=== PATIENT | female | born 1970 | race Caucasian/White ===

== ENCOUNTER 2016-06-05 09:17 | Outpatient (RCR) | payer OTHER ==
[~2016-06-05 09:17] MED LIST: CYCL10TA9 PO; ESTR0.5T PO; OMG1KC PO
== END 2016-06-22 09:24 | disposition home or self-care (01) ==
PROVIDERS: ATTEND Podiatrist
DX: M25.371 Other instability, right ankle (principal)

== ENCOUNTER 2016-10-02 10:30 | Outpatient (RCR) | payer OTHER | END 2016-10-10 11:31 | disposition home or self-care (01) | PROVIDERS: ATTEND Podiatrist | DX: M25.571 Pain in right ankle and joints of right foot (principal); Z98.890 Other specified postprocedural states ==

== ENCOUNTER → 2016-11-08 | Outpatient (CLI) | payer OTHER ==
--- NOTE | 2016-11-08 13:54 | Diagnostic Imaging Report ---
EXAMINATION: DEXA scan. INDICATION: Osteopenia. TECHNIQUE: Bone mineral density estimated based on dual energy radiography over the lumbar spine and femoral necks, was performed. FINDINGS: The lumbar spine T-score is -1.2. This is 10.5% decreased density measurement compared to the prior exam of 02/03/2015. T score over the left femoral neck is -0.1 and on the right is -0.3. This is 1.6% decreased density measurement compared to the prior exam. IMPRESSION: Osteopenia. Dictated by: Dictated on workstation # [id number]
--- NOTE | 2016-11-08 20:24 | Diagnostic Imaging Report ---
Bilateral screening mammogram 2D views with tomosynthesis The current study was also evaluated with a Computer Aided Detection (CAD) system. Indication: Screening. No current complaints stated on the questionnaire. COMPARISON: 02/03/15. FINDINGS: The breasts are composed of scattered fibroglandular densities. There are benign-appearing calcifications seen. Allowing for technique and positional differences, no suspicious change is seen. IMPRESSION: No significant change. ACR BI-RADS Category 2: Benign findings. Result letter will be mailed to the patient. Note: At least 10% of breast cancer is not imaged by mammography. Dictated by: Dictated on workstation # [id number]
== END ==
LOC: RAD 10:34
DX: M85.80 Other specified disorders of bone density and structure, unspecified site; Z12.31 Encounter for screening mammogram for malignant neoplasm of breast
CPT/HCPCS: 77067; 77080

== ENCOUNTER → 2016-11-19 | Outpatient (CLI) | payer OTHER ==
[~2016-11-19] VITALS: Ht 160 cm; Wt 90.7 kg
[~2016-11-19] MED LIST changes: +ZOLEDRONATE 5 MG/100 ML (RECLAST) BTL IV ONE
[2016-11-19 12:43] VITALS: BP 140/87
== END ==
LOC: SDC 12:39
DX: M81.0 Age-related osteoporosis without current pathological fracture (principal)
CPT/HCPCS: 96365

== ENCOUNTER → 2018-05-19 | Outpatient (CLI) | payer OTHER ==
[~2018-05-19] MED LIST changes: -ZOLEDRONATE 5 MG/100 ML (RECLAST) BTL IV ONE
--- NOTE | 2018-05-19 13:02 | Diagnostic Imaging Report ---
INDICATION: Chronic cough, recurrent wheezing, shortness of breath.. TECHNIQUE: Two view chest 12:13 PM CORRELATION STUDY: None FINDINGS: The heart size, mediastinal configuration and pulmonary vasculature are within normal limits. The lungs are clear with no consolidating infiltrate. There is no significant pleural effusion or pneumothorax. Gastric lap and is noted. IMPRESSION: 1. No radiographic evidence for acute abnormality of the chest. Dictated by: Dictated on workstation # [id number]
== END ==
LOC: RAD 11:51
PROVIDERS: ATTEND Nurse Practitioner Family
DX: R06.02 Shortness of breath (principal); R06.2 Wheezing; R05 Cough
CPT/HCPCS: 71046

== ENCOUNTER → 2019-05-14 | Outpatient (CLI) | payer OTHER ==
[~2019-05-14] VITALS: Ht 63 cm; Wt 91.0 kg
[~2019-05-14] MED LIST changes: +CATHETER FLUSH 10 ML SYR IV PRN; +REGADENOSON 0.4 MG/5 ML SYR (LEXISCAN) IV ONE
[2019-05-14 12:48] VITALS: BP 132/97
[2019-05-14 12:51] VITALS: BP 145/104
--- NOTE | 2019-05-19 16:48 | Cardiology Stress Test Report ---
Stress Test Report Type of NM Stress Test: Test Type: LEXISCAN 0.4MG/5ML Date of Procedure/Referring: Date of Procedure: May 14, 2019 PCP Karina Ramírez Aprn Admitting Physician Lance Oliveira MD Indications: Chest pain Baseline Heart Rate: 86 Baseline Blood Pressure: Blood Pressure Systolic: 145 Blood Pressure Diastolic: 104 Baseline EKG: Baseline EKG: Sinus rhythm Summary & Conclusion: Summary: The patient was brought to the stress lab after informed consent was taken. Stress test was performed according to the Lexiscan protocol. 0.4 mg of IV Lexiscan was given. Low-grade exercise was performed. Baseline EKG showed sinus rhythm at 86 bpm and blood pressure 147/103 mmHg. Maximum heart rate of 103 bpm and blood pressure 151/95 mmHg. Patient did not have any chest pain, arrhythmias or ST segment changes during the stress test. 10.74 mCi of Myoview were given for rest imaging and 30.3 mCi of Myoview given for stress imaging. Transient ischemic dilatation score 0.94, EF 68 percent. Normal wall motion. Normal myocardial perfusion imaging during rest and stress. Conclusion: Pharmacological stress test was negative for ischemia. Normal LV function with no wall motion abnormalities. Normal myocardial perfusion imaging during rest and stress. Greyson BERRY MD May 19, 2019 16:48
== END ==
LOC: CARD 11:27
PROVIDERS: ATTEND Nurse Practitioner Family
DX: R07.89 Other chest pain (principal)
CPT/HCPCS: 78452; 93017

== ENCOUNTER 2019-12-01 05:38 | Outpatient (RCR) | payer OTHER ==
[~2019-12-01] VITALS: Ht 160 cm; Wt 93.1 kg
[~2019-12-01 05:38] MED LIST changes: -CATHETER FLUSH 10 ML SYR IV PRN; +ESTR1TAB24 PO; +FLT22013 IH; +LEVO50TA6 PO; +PROP40TA5 PO; -REGADENOSON 0.4 MG/5 ML SYR (LEXISCAN) IV ONE; +RIZA10TA23 PO
== END 2019-12-01 10:07 | disposition home or self-care (01) ==
LOC: PREOP 05:38
PROVIDERS: ATTEND Surgery
DX: Z01.818 Encounter for other preprocedural examination (principal); Z01.812 Encounter for preprocedural laboratory examination; Z12.11 Encounter for screening for malignant neoplasm of colon; R10.9 Unspecified abdominal pain; Z20.828 Contact with and (suspected) exposure to other viral communicable diseases
CPT/HCPCS: 87635

== ENCOUNTER 2019-12-03 09:48 | Day surgery (SDC) | payer OTHER ==
[2019-12-03] VITALS (12 sets, daily range): BP systolic 112–146; BP diastolic 56–87
[~2019-12-03] VITALS: Ht 160 cm; Wt 93.1 kg
[2019-12-03] MEDS ORDERED: CLINDAMYCIN 600 MG/50 ML IVPB 50 ML IV ONE (10:30)
[2019-12-03] MEDS ORDERED: SCOPOLAMINE 1.5 MG (TRANSDERM-SCOP) PATCH ONE (10:54)
[2019-12-03] MEDS ORDERED: ONDANSETRON 4 MG/2 ML (SDV) Z0FRAN ONE ×2 (10:54→11:36)
[2019-12-03] MEDS ORDERED: FAMOTIDINE 20MG/2ML IV (PEPCID) ONE (10:57)
[2019-12-03] MEDS ORDERED: FAMOTIDINE 20MG/2ML IV (PEPCID) IV ONE (11:00)
[2019-12-03] MEDS ORDERED: ONDANSETRON 4 MG/2 ML (SDV) Z0FRAN IVP PRN ×2 (11:00→15:15)
[2019-12-03] MEDS ORDERED: oxyCODONE/APAP 5/325MG (PERCOCET 5) TABLET PO PRN (11:00)
[2019-12-03] MEDS ORDERED: ACETAMINOPHEN 325 MG TABLET PO PRN (11:00)
[2019-12-03] MEDS ORDERED: SCOPOLAMINE 1.5 MG (TRANSDERM-SCOP) PATCH TOP ONE (11:00)
[2019-12-03] MEDS ORDERED: ONDANSETRON 4 MG/2 ML (SDV) Z0FRAN IV ONE (11:00)
[2019-12-03] MEDS ORDERED: morphine INJ 10 MG/ML 1ML (SYR OR VIAL) IVP PRN ×2 (11:00)
--- NOTE | 2019-12-03 11:00 | Progress Note-Pre Operative ---
Pre-Operative Progress Note H&P Reviewed The H&P was reviewed, patient examined and no changes noted. Date Seen by Provider: Dec 03, 2019 Time Seen by Provider: 10:45 Date H&P Reviewed: Dec 03, 2019 Time H&P Reviewed: :45 Pre-Operative Diagnosis: GERD, regurgitation MARGARET CARRILLO MD Dec 03, 2019 11:00
[2019-12-03] MEDS ORDERED: HYDR-3817 PO (11:01)
--- NOTE | 2019-12-03 11:02 | Discharge Inst-Surgical ---
D/C Lap Instructions-GERARDO New, Converted, or Re-Newed RX: RX on Chart Follow Up Appt in 2 weeks Activity as tolerated No driving for 24 hours No driving while on pain medications Incentive Spirometry use every 2 hours while awake Regular Diet Symptoms to Report: Fever over 101 degree F, Nausea/Vomiting Infection Signs and Symptoms to report: Increased redness, Foul odor of wound, Increased drainage Bathing instructions: May shower Operative Area Clean/Dry; Keep incision clean/dry If any problems/questions: Contact your physician or go to Emergency Room MARGARET CARRILLO MD Dec 03, 2019 11:02
[2019-12-03] MEDS: LACTATED RINGERS 1,000 ML IV PRN ×2 (11:12→15:47)
[2019-12-03 11:24] LABS: BASOPHILS % (AUTO) 1 % (0-10); EOSINOPHILS # (AUTO) 0.2 10^3/uL (0.0-0.3); EOSINOPHILS % (AUTO) 3 % (0-10); HEMATOCRIT 42 % (35-52); HEMOGLOBIN 14.7 g/dL (11.5-16.0); LYMPHOCYTES # (AUTO) 3.1 10^3/uL (1.0-4.0); LYMPHOCYTES % (AUTO) 42 % (12-44); MEAN CORPUSCULAR HEMOGLOBIN 32 pg (25-34); MEAN CORPUSCULAR HGB CONC 35 g/dL (32-36); MEAN CORPUSCULAR VOLUME 91 fL (80-99); MEAN PLATELET VOLUME 9.5 fL (9.0-12.2); MONOCYTES # (AUTO) 0.6 10^3/uL (0.0-1.0); MONOCYTES % (AUTO) 8 % (0-12); NEUTROPHILS # (AUTO) 3.4 10^3/uL (1.8-7.8); NEUTROPHILS % (AUTO) 46 % (42-75); PLATELET COUNT 333 10^3/uL (130-400); WHITE BLOOD COUNT 7.4 10^3/uL (4.3-11.0)
[2019-12-03] MEDS ORDERED: LIDOCAINE PF 2% 5 ML (XYLOCAINE) VIAL ONE (11:36)
[2019-12-03] MEDS ORDERED: ROCURONIUM 10 MG/ML 5 ML SYRINGE IV ONE (11:36)
[2019-12-03] MEDS ORDERED: proPOfol 200 MG/20 ML (DIPRIVAN) VIAL IV ONE (11:36)
[2019-12-03] MEDS ORDERED: MIDAZOLAM 2 MG/2 ML (VERSED) VIAL ONE (11:36)
[2019-12-03] MEDS ORDERED: fentaNYL INJECTION 100 MCG/2 ML AMP ONE (11:36)
[2019-12-03] MEDS ORDERED: BUP/EPI 0.5% 1:200,000 (SENSORCAINE) 30 ML VIAL ONE (11:37)
[2019-12-03] MEDS ORDERED: SEVOFLURANE (ULTANE) 15 ML INHAL SOLN ONE ×4 (11:42→15:05)
[2019-12-03] MEDS ORDERED: NEOSTIGMINE 3 MG/3 ML VIAL ONE (11:46)
[2019-12-03] MEDS ORDERED: GLYCOPYRROLATE 0.2 MG/ML (ROBINUL) 2 ML VIAL ONE (11:46)
[2019-12-03] MEDS ORDERED: HYDROmorphone 2 MG/ML VIAL (DILAUDID) IV ONE (15:15)
[2019-12-03] MEDS ORDERED: morphine INJ 10 MG/ML 1ML (SYR OR VIAL) IVP ONE (15:15)
--- NOTE | 2019-12-03 15:15 | Anesthesia-General Post-Op ---
General Patient Condition Mental Status/LOC: Same as Preop Cardiovascular: Satisfactory Nausea/Vomiting: Absent Respiratory: Satisfactory Pain: Controlled Complications: Absent Post Op Complications Complications None Follow Up Care/Instructions Patient Instructions None needed. Anesthesia/Patient Condition Patient Condition Patient is doing well, C/O some gas pain after colonoscopy, stable vital signs, no apparent adverse anesthesia problems. ALM BIANCHI DO Dec 03, 2019 15:15
--- NOTE | 2019-12-03 15:26 | Progress Note-Post Operative ---
Post-Operative Progess Note Surgeon (s)/Knife Changer (s) Surgeon MARGARET CARRILLO MD Knife Changer: thao jara APRN Pre-Operative Diagnosis GERD, regurgitation Post-Operative Diagnosis same, chronic stage 2 ext and int hemorrhoids, mild-moderate sigmoid diverticulosis. Procedure & Operative Findings Date of Procedure 12/03/19 Procedure Performed/Findings laparoscopic adjustable gastric band and subcutaneous reservoir removal. Colonoscopy. Anesthesia Type get Estimated Blood Loss Estimated blood loss (mL): minimal Specimens/Packing Specimens Removed band MARGARET CARRILLO MD Dec 03, 2019 15:26
--- NOTE | 2019-12-03 21:33 | OPERATIVE REPORT ---
DATE OF SERVICE: 12/03/2019 ATTENDING PRIMARY CARE PHYSICIAN: Lance Oliveira MD PREOPERATIVE DIAGNOSES: Symptomatic gastroesophageal reflux disease, left upper abdominal quadrant pain, dysphagia, screening colonoscopy. POSTOPERATIVE DIAGNOSES: Symptomatic gastroesophageal reflux disease, left upper abdominal quadrant pain, dysphagia, screening colonoscopy. Chronic stage II external and internal hemorrhoids, mild to moderate sigmoid diverticulosis. PROCEDURE: Diagnostic laparoscopy, removal of adjustable gastric band, colonoscopy. SURGEON: Margaret Rendon MD ATHLETE MARKETING AGENT: Nini Griffin APRN. ANESTHESIA: General endotracheal. ESTIMATED BLOOD LOSS: Minimal. FINDINGS: No band erosion. Chronic stage II external and internal hemorrhoids. Mild to moderate sigmoid diverticulosis. DISPOSITION: The patient tolerated the procedure well. INDICATIONS: The patient is a 49-year-old female who has had issues with pain in the left upper abdominal quadrant. She has had a longstanding history of morbid obesity as well as gastroesophageal reflux disease. She underwent a laparoscopic adjustable gastric band in 2007 at [facility]. She was able to lose significant amount of weight; however, over time, developed gastroesophageal reflux disease, which persisted and worsened over time. She then developed pain in the left upper abdominal quadrant. All the fluid was removed from the band. However, she will continue to have these type of symptoms. She was also seen by a uptwister tender due to recurrent bronchitis. She is also in need of a colonoscopy. She has a first-degree relative with history of colon cancer with her father being diagnosed with the disease at around age 70. DESCRIPTION OF PROCEDURE: The patient was brought to the operating room, laid supine on the table. After adequate IV pain and sedative medications and general endotracheal intubation, the abdomen was prepped and draped in standard surgical fashion. A 0.5% Marcaine with epinephrine was used to anesthetize overlying skin in the left upper abdominal quadrant and a transverse skin incision made using a 15 blade. An 0 silk suture was applied to the medial aspect of the incision for retraction and a Veress needle was inserted with a low opening pressure of 0 mmHg and the abdomen was then insufflated to 15 mmHg pressure. The Veress needle removed and a 5 mm XL trocar placed followed by a 5 mm 45-degree angle laparoscope visualizing the peritoneal cavity. A 4-quadrant abdominal exploration was performed. There were some omental adhesions towards the abdominal wall, more towards the mid abdomen and pelvis. After liver retraction, there was a band in place. Under direct visualization, we then proceeded to place a midabdominal right of midline, 10 mm port after the skin and peritoneal lining were anesthetized using 0.5% Marcaine with epinephrine and a transverse skin incision made using a 15 blade. In a similar manner, two right upper abdominal quadrant 5 mm ports were placed. An area was then anesthetized in the epigastric region and a transverse skin incision made using 11 blade. A tract was then created using a trocar to a 5 mm port and through this opening, a medium sized Jeni liver retractor was placed and the left lobe of the liver retracted anteriorly and superiorly. The patient was then placed in steep reverse Trendelenburg position. The omega angle may have been slightly increased indicating a possible inferior band slippage. The buckleto the band was then dissected out using blunt dissection as well as theSonicision. Once unclasped, the band tubing was cut with EndoShears and the band removed with minimal resistance. No band erosions were identified. Good hemostasis was observed. The band and its connected tubing was then removed through the 10 mm port site. The liver retractor was then removed and through the 10 mm port site and the 10 mm port site fascia and peritoneum were then closed under direct visualization using a Jimmy-Fatoumata device and 0 Vicryl suture. The patient was then placed flat and the band port and underlying mesh as well as sutures were removed using blunt dissection as well as electrocautery with visualization of good hemostasis. The abdomen was desufflated, the remaining ports removed. All skin incisions were closed using 4-0 Monocryl running subcuticular sutures. The wounds were then cleaned and covered with Dermabond. The patient was then placed in frog leg position. A digital rectal examination revealed chronic stage II external and internal hemorrhoids with no active inflammation or any bleeding. Normal sphincter tone was felt and there were no palpable masses. The endoscope was then intubated to anus and rectum gently insufflated. The endoscope was then advanced through the valves of Yañez of the rectum with no polyps or any neoplasms identified. The endoscope was then advanced through the sigmoid colon where mild to moderate sigmoid diverticulosis identified. There were no mucosal inflammatory changes to indicate any active diverticulitis. The endoscope was then advanced to the remainder of the descending, transverse and ascending colon to the cecum. These segments were normal. There were no polyps or any neoplasms identified throughout the colon or rectum. The endoscope was slowly withdrawn while taking a second look and suctioning of residual air with no additional findings. The patient tolerated the procedure well. We will start IV and oral pain medication as well as a clear liquid diet. Once she is tolerating clears, has good pain control with oral pain medications, ambulating well, we will discharge her home. She does not need another colonoscopy for another five years. Job ID: [id number] DocumentID: [id number] Dictated Date: 12/03/2019 15:04:27 Waste Duster Date: 12/03/2019 21:33:07 Dictated By: MARGARET RENDON MD MTDD
[2019-12-06] MEDS ORDERED: SCOPOLAMINE PATCH REMOVAL TP SCH (11:00)
== END 2019-12-03 17:30 | disposition home or self-care (01) ==
LOC: SDC 09:48
PROVIDERS: ATTEND Surgery
DX: Z12.11 Encounter for screening for malignant neoplasm of colon (principal); K21.9 Gastro-esophageal reflux disease without esophagitis; K64.1 Second degree hemorrhoids; K57.30 Diverticulosis of large intestine without perforation or abscess without bleeding; K66.0 Peritoneal adhesions (postprocedural) (postinfection); Z11.2 Encounter for screening for other bacterial diseases; Z98.84 Bariatric surgery status; Z80.0 Family history of malignant neoplasm of digestive organs; Z79.890 Hormone replacement therapy; Z79.899 Other long term (current) drug therapy; E03.9 Hypothyroidism, unspecified; Z88.5 Allergy status to narcotic agent; Z88.0 Allergy status to penicillin
CPT/HCPCS: 36415; 85025; 87081; 88300

== ENCOUNTER 2020-01-13 09:40 | Inpatient (IN) | payer OTHER ==
[~2020-01-13] VITALS: Ht 160 cm; Wt 99.6 kg
[~2020-01-13 09:40] MED LIST changes: +HYDR-3817 PO
[2020-01-13] MEDS ORDERED: LACTATED RINGERS 1,000 ML IV ONE (10:02)
[2020-01-13 10:07] LABS: ABG BASE EXCESS -1.1 MMOL/L (-2.5-2.5); ABG OXYGEN SATURATION 95 % (94-100); ABG PCO2 29 MMHG (35-45); ABG PO2 75 MMHG (79-93); ABG TCO2 22.6 MMOL/L (21.0-31.0)
[2020-01-13 10:08] LABS: ALLENS TEST YES-POS; INSPIRED O2 ROOM AIR; VENTILATOR NO
--- NOTE | 2020-01-13 10:10 | ED Respiratory ---
General Chief Complaint: Respiratory Problems Stated Complaint: COVID +, TROUBLE BREATHING Nursing Triage Note: Pt reports being diagnosed with COVID at [facility]. Pt reports symptoms began last . Pt reports early low grade fever and now increasing cough and SOB. Pt reports green sputum. Source: patient Exam Limitations: no limitations History of Present Illness Date Seen by Provider: Jan 13, 2020 Time Seen by Provider: 09:45 Initial Comments Patient presents ER by private conveyance with chief complaint shortness of breath progressively worsening over the past 6 days. She had a positive COVID test from 3 days ago. Low-grade fever sparingly productive cough of clear phlegm and nausea vomiting and diarrhea. She has pain on deep inspiration. No history of coronary disease. No significant family history. She does have some lung disease requiring Flovent daily and she's been using her albuterol the last couple days. She says she had a pneumonia about a year ago and since then has been followed by pulmonology but they have not given her a specific diagnosis yet. She is not a smoker. She has not taken anything for diarrhea and does not have anything for nausea. She usually takes ibuprofen with PPI and last dose was last night. She has a pulse oximeter which she checked throughout the night and would run anywhere from 88-93% on room air. Allergies and Home Medications Allergies Coded Allergies: meperidine (Unverified Allergy, Severe, STOPS BREATHING, 11/30/19) Penicillins (Unverified Allergy, Mild, RASH/ITCHING, 11/30/19) Home Medications Cyclobenzaprine HCl 10 Mg Tablet, 10 MG PO TID PRN for SPASMS, (Reported) Estradiol 1 Mg Tablet, 1 MG PO DAILY, (Reported) Fluticasone Propionate 1 Ea Aero, 2 EA IH BID, (Reported) Hydrocodone/Acetaminophen 1 Each Tablet, 1 EACH PO Q4H Prescribed by: MARGARET CARRILLO on 12/03/19 1101 Levothyroxine Sodium 50 Mcg Tablet, 50 MCG PO DAILY, (Reported) Propranolol HCl 40 Mg Tablet, 40 MG PO HS, (Reported) Rizatriptan Benzoate 10 Mg Tablet, 10 MG PO PRN PRN for MIGRAINES, (Reported) Patient Home Medication List Home Medication List Reviewed: Yes Review of Systems Review of Systems Constitutional: chills; No diaphoresis, No fever; malaise, weakness EENTM: No hearing loss, No ear pain, No nose congestion Respiratory: cough, phlegm, short of breath; No wheezing Cardiovascular: see HPI, chest pain; No edema, No Hx of Intervention, No palpitations Gastrointestinal: No abdominal pain, No constipation; diarrhea, nausea, vomiting Genitourinary: No discharge, No dysuria Musculoskeletal: No back pain, No joint pain All Other Systems Reviewed Negative Unless Noted: Yes Past Gdblzwy-Njchzu-Gflaag Hx Patient Social History Alcohol Use: Denies Use Recreational Drug Use: No 2nd Hand Smoke Exposure: No Recent Foreign Travel: No Contact w/Someone Who Travel: No Recent Infectious Disease Expo: No Recent Hopitalizations: No Seasonal Allergies Seasonal Allergies: No Past Medical History Surgeries: Yes (CS X2, LAP BAND, RIGHT FOOT, BLADDER X3) Appendectomy, Section, Gallbladder, Hysterectomy, Oophorectomy Respiratory: No Cardiac: Yes High Cholesterol Neurological: Yes Headaches /Migraines Sexually Transmitted Disease: No HIV/AIDS: No Genitourinary: Yes (INTERSTITIAL CYSTITIS) UTI-Chronic Gastrointestinal: Yes Gastroesophageal Reflux Musculoskeletal: Yes Arthritis, Fibromyalgia Endocrine: Yes Hypothyroidsim HEENT: No (GLASSES) Loss of Vision: Denies Hearing Impairment: Denies Cancer: No Psychosocial: No Integumentary: No Blood Disorders: No Adverse Reaction/Blood Tranf: No (N/A) Physical Exam Vital Signs - First Documented 01/13/20 09:45 Temp 37.0 Pulse 93 Resp 20 B/P (MAP) 111/83 (92) Pulse Ox 97 Capillary Refill : Less Than 3 Seconds Height: 5'3.00" Weight: 200lbs. 0.0oz. 90.161000jy; 35.00 BMI Method: General Appearance: WD/WN, moderate distress Eyes: Bilateral Eye Normal Inspection, Bilateral Eye PERRL, Bilateral Eye EOMI HEENT: PERRL/EOMI, normal ENT inspection, TMs normal; No pharynx normal (oropharynx dry) Neck: full range of motion, normal inspection Respiratory: lungs clear, no accessory muscle use, respiratory distress (mild with oxygen sats 95% on room air at rest.), decreased breath sounds Cardiovascular: normal peripheral pulses, regular rate, rhythm Gastrointestinal: normal bowel sounds, non tender, soft Extremities: non-tender, normal inspection Neurologic/Psychiatric: alert, normal mood/affect, oriented x 3 Skin: normal color, warm/dry Focused Exam Sepsis Stage: Sepsis Lactate Level 01/13/20 10:00: Lactic Acid Level 2.44*H Time of Focused Exam: 10:57 Respiratory: Lungs Clear, Normal Breath Sounds, Respiratory Distress Cardiovascular: Regular Rate, Rhythm, No Edema Capillary Refill: Less Than 3 Seconds Peripheral Pulses: 2+ Radial Pulses (R), 2+ Radial Pulses (L) Skin: normal color, warm/dry Lactic Acid Level Laboratory Tests Test 01/13/20 10:00 Lactic Acid Level 2.44 MMOL/L (0.50-2.00) *H Within 3hrs of presentation: Admin fluids, Admin ABX, Blood cultures prior to ABX's, Focus exam, Lactate level Progress/Results/Core Measures Suspected Sepsis Recent Fever Within 48 Hours: No Infection Criteria Present: None New/Unexplained Altered Menta: No Sepsis Screen: No Definite Risk SIRS Temperature: Pulse: 93 Respiratory Rate: 20 Laboratory Tests 01/13/20 10:00: White Blood Count 4.1L Blood Pressure 111 /83 Mean: 92 01/13/20 10:00: Lactic Acid Level 2.44*H Laboratory Tests 01/13/20 10:00: Creatinine 0.74, Platelet Count 195, Total Bilirubin 0.4 Results/Orders Lab Results Laboratory Tests Test 01/13/20 09:57 01/13/20 10:00 01/13/20 10:14 Range/Units Blood Gas Puncture Site R RAD Blood Gas Patient Temperature 37.0 Arterial Blood pH 7.50 H 7.37-7.43 Arterial Blood Partial Pressure CO2 29 L 35-45 MMHG Arterial Blood Partial Pressure O2 75 L 79-93 MMHG Arterial Blood HCO3 22 L 23-27 MMOL/L Arterial Blood Total CO2 22.6 21.0-31.0 MMOL/L Arterial Blood Oxygen Saturation 95 94-100 % Arterial Blood Base Excess -1.1 -2.5-2.5 MMOL/L Michelet Test YES-POS Blood Gas Ventilator Setting NO Blood Gas Inspired Oxygen ROOM AIR White Blood Count 4.1 L 4.3-11.0 10^3/uL Red Blood Count 4.13 3.80-5.11 10^6/uL Hemoglobin 13.3 11.5-16.0 g/dL Hematocrit 38 35-52 % Mean Corpuscular Volume 92 80-99 fL Mean Corpuscular Hemoglobin 32 25-34 pg Mean Corpuscular Hemoglobin Concent 35 32-36 g/dL Red Cell Distribution Width 12.8 10.0-14.5 % Platelet Count 195 130-400 10^3/uL Mean Platelet Volume 9.7 9.0-12.2 fL Immature Granulocyte % (Auto) 1 % Neutrophils (%) (Auto) 55 42-75 % Lymphocytes (%) (Auto) 35 12-44 % Monocytes (%) (Auto) 9 0-12 % Eosinophils (%) (Auto) 1 0-10 % Basophils (%) (Auto) 0 0-10 % Neutrophils # (Auto) 2.2 1.8-7.8 10^3/uL Lymphocytes # (Auto) 1.4 1.0-4.0 10^3/uL Monocytes # (Auto) 0.4 0.0-1.0 10^3/uL Eosinophils # (Auto) 0.0 0.0-0.3 10^3/uL Basophils # (Auto) 0.0 0.0-0.1 10^3/uL Immature Granulocyte # (Auto) 0.0 0.0-0.1 10^3/uL D-Dimer < 0.27 0.00-0.49 UG/ML Sodium Level 138 135-145 MMOL/L Potassium Level 3.5 L 3.6-5.0 MMOL/L Chloride Level 104 98-107 MMOL/L Carbon Dioxide Level 21 21-32 MMOL/L Anion Gap 13 5-14 MMOL/L Blood Urea Nitrogen 8 7-18 MG/DL Creatinine 0.74 0.60-1.30 MG/DL Estimat Glomerular Filtration Rate > 60 BUN/Creatinine Ratio 11 Glucose Level 90 70-105 MG/DL Lactic Acid Level 2.44 *H 0.50-2.00 MMOL/L Calcium Level 7.8 L 8.5-10.1 MG/DL Corrected Calcium 8.3 L 8.5-10.1 MG/DL Total Bilirubin 0.4 0.1-1.0 MG/DL Aspartate Amino Transf (AST/SGOT) 33 5-34 U/L Alanine Aminotransferase (ALT/SGPT) 41 0-55 U/L Alkaline Phosphatase 59 40-136 U/L C-Reactive Protein High Sensitivity 2.26 H 0.00-0.50 MG/DL Total Protein 6.4 6.4-8.2 GM/DL Albumin 3.4 3.2-4.5 GM/DL Procalcitonin 0.02 <0.10 NG/ML Urine Color YELLOW Urine Clarity CLEAR Urine pH 6.0 5-9 Urine Specific Bayard 1.020 1.016-1.022 Urine Protein NEGATIVE NEGATIVE Urine Glucose (UA) NEGATIVE NEGATIVE Urine Ketones NEGATIVE NEGATIVE Urine Nitrite NEGATIVE NEGATIVE Urine Bilirubin NEGATIVE NEGATIVE Urine Urobilinogen 0.2 < = 1.0 MG/DL Urine Leukocyte Esterase NEGATIVE NEGATIVE Urine RBC (Auto) NEGATIVE NEGATIVE Urine RBC NONE /HPF Urine WBC 10-25 H /HPF Urine Squamous Epithelial Cells 10-25 H /HPF Urine Crystals NONE /LPF Urine Bacteria MODERATE H /HPF Urine Casts NONE /LPF Urine Mucus NEGATIVE /LPF Urine Culture Indicated YES My Orders Orders - YVONNE BARRETO Arterial Blood Gas (01/13/20 09:58) Ed Iv/Invasive Line Start (01/13/20 10:02) Lactated Ringers (Lr 1000 Ml Iv Solution (01/13/20 10:02) Ondansetron Injection (Zofran Injectio (01/13/20 10:15) Ketorolac Injection (Toradol Injection) (01/13/20 10:15) Procalcitonin (Pct) (01/13/20 10:02) Hs C Reactive Protein (01/13/20 10:02) Fibrin Degradation Products (01/13/20 10:02) Cbc With Automated Diff (01/13/20 10:02) Comprehensive Metabolic Panel (01/13/20 10:02) Ua Culture If Indicated (01/13/20 10:02) Chest 1 View, Ap/Pa Only (01/13/20 10:02) Covid-19 External Lab Results (01/13/20 10:15) Lactic Acid Analyzer (01/13/20 10:57) Ceftriaxone For Iv Use (Rocephin For I (01/13/20 11:00) Azithromycin Injection (Zithromax Inject (01/13/20 11:00) Dexamethasone Injection (Decadron Inje (01/13/20 11:00) Urine Culture (01/13/20 10:14) Lactated Ringers (Lr 1000 Ml Iv Solution (01/13/20 11:12) Medications Given in ED Current Medications Medications Dose Ordered Sig/Ravinder Route Start Time Stop Time Status Last Admin Dose Admin Azithromycin 500 mg/Sodium Chloride 250 ml @ 250 mls/hr ONCE ONCE IV 01/13/20 11:00 01/13/20 11:59 DC 01/13/20 11:44 250 MLS/HR Ceftriaxone Sodium 1000 mg/ Sterile Water 10 ml @ 200 mls/hr ONCE ONCE IV 01/13/20 11:00 01/13/20 11:02 DC 01/13/20 11:44 200 MLS/HR Dexamethasone Sodium Phosphate 6 mg ONCE ONCE IV 01/13/20 11:00 01/13/20 11:01 DC 01/13/20 11:35 6 MG Ketorolac Tromethamine 30 mg ONCE ONCE IVP 01/13/20 10:15 01/13/20 10:16 DC 01/13/20 10:27 30 MG Lactated Ringer's 1,000 ml @ 0 mls/hr Q0M ONCE IV 01/13/20 10:02 01/13/20 10:06 DC 01/13/20 10:24 1,000 MLS/HR Ondansetron HCl 8 mg ONCE ONCE IVP 01/13/20 10:15 01/13/20 10:16 DC 01/13/20 10:23 8 MG Vital Signs/I&O 01/13/20 09:45 Temp 37.0 Pulse 93 Resp 20 B/P (MAP) 111/83 (92) Pulse Ox 97 Capillary Refill : Less Than 3 Seconds Blood Pressure Mean: 92 Progress Note #1: Time: 10:09 Progress Note Borderline whether or not she is truly having hypoxia so we'll get an ABG. We'll get some labs and urinalysis. We'll give her some Zofran for her nausea and Toradol for her discomfort and headache. Suspect her chest pain is pleuritic in nature and related to her COVID infection. We'll get a chest x-ray and some labs will help us rule out bacterial infection. While she is tachycardic and probably has a mild white count this is most likely due to COVID-19 so we will be cautious with her IV fluid repletion and start with just 1 L. We will not give antibiotics until we see evidence of bacterial infection. Progress Note #2: Time: 10:54 Progress Note Patient desatted 88% on walking to the bathroom per nursing. Her ABG does demonstrate baseline resting hypoxia and she is blowing off her CO2 trying to oxygenate. A couple liters of oxygen would probably help. Her to get her some Decadron and recommends stay in the hospital on oxygen. Because of the chest x- ray finding and a low white count we'll go ahead and cover her with Rocephin and azithromycin. Diagnostic Imaging Diagonstic Imaging: Xray Plain Films/CT/US/NM/MRI: chest Comments NAME: KARAN GALVEZ [facility] REC#: [id number] PT STATUS: REG ER : 1970 PHYSICIAN: YVONNE BARRETO MD ADMIT DATE: 01/13/20/ER Draft Date of Exam:01/13/20 CHEST 1 VIEW, AP/PA ONLY HISTORY: COVID positive, increasing cough and shortness of air. TECHNIQUE: Frontal view of the chest. COMPARISON: 05/19/2018. FINDINGS: Lung volumes are normal. There are airspace opacities in the left midlung and peripheral left lung base. No pleural effusion or pneumothorax is seen. The cardiac silhouette is normal in size. IMPRESSION: 1. Airspace opacities in the left lung consistent with pneumonia. Dictated on workstation # [id number] Dict: 01/13/20 1030 Trans: 01/13/20 1032 [facility] [place] [id number] Interpreted by: LISE CHANDLER MD Electronically signed by: Reviewed: Reviewed by Me Departure Communication (Admissions) Time/Spoke to Admitting Phy: 12:05 Discussed the case with Dr. Winter and he agrees to admit the floor on oxygen, Decadron and antibiotics. Impression Primary Impression: COVID-19 Additional Impressions: Pneumonia Qualified Codes: J18.9 - Pneumonia, unspecified organism Acute respiratory failure with hypoxia Sepsis Qualified Codes: A41.9 - Sepsis, unspecified organism; R65.20 - Severe sepsis without septic shock; J96.01 - Acute respiratory failure with hypoxia Disposition: ADMITTED INPATIENT Condition: Stable Admissions Decision to Admit Reason: Admit from ER (General) Decision to Admit/Date: Jan 13, 2020 Time/Decision to Admit Time: 10:57 Departure-Patient Inst. Referrals: JOAO BUCHANAN MD (PCP/Family) Primary Care Physician YVONNE BARRETO Jan 13, 2020 10:10
[2020-01-13] MEDS ORDERED: ONDANSETRON 4 MG/2 ML (SDV) Z0FRAN IVP ONE (10:15)
[2020-01-13] MEDS ORDERED: KETOROLAC 30 MG/ML VIAL IVP ONE (10:15)
[2020-01-13 10:16] LABS: BASOPHILS % (AUTO) 0 % (0-10); EOSINOPHILS % (AUTO) 1 % (0-10); HEMATOCRIT 38 % (35-52); HEMOGLOBIN 13.3 g/dL (11.5-16.0); LYMPHOCYTES # (AUTO) 1.4 10^3/uL (1.0-4.0); LYMPHOCYTES % (AUTO) 35 % (12-44); MEAN CORPUSCULAR HEMOGLOBIN 32 pg (25-34); MEAN CORPUSCULAR HGB CONC 35 g/dL (32-36); MEAN CORPUSCULAR VOLUME 92 fL (80-99); MEAN PLATELET VOLUME 9.7 fL (9.0-12.2); MONOCYTES # (AUTO) 0.4 10^3/uL (0.0-1.0); MONOCYTES % (AUTO) 9 % (0-12); NEUTROPHILS # (AUTO) 2.2 10^3/uL (1.8-7.8); NEUTROPHILS % (AUTO) 55 % (42-75); PLATELET COUNT 195 10^3/uL (130-400); WHITE BLOOD COUNT 4.1 10^3/uL (4.3-11.0)
[2020-01-13 10:32] LABS: ALBUMIN 3.4 GM/DL (3.2-4.5); CHLORIDE 104 MMOL/L (98-107); POTASSIUM 3.5 MMOL/L (3.6-5.0); SODIUM 138 MMOL/L (135-145)
[2020-01-13 10:33] LABS: CALCIUM 7.8 MG/DL (8.5-10.1)
--- NOTE | 2020-01-13 10:33 | Diagnostic Imaging Report ---
HISTORY: COVID positive, increasing cough and shortness of air. TECHNIQUE: Frontal view of the chest. COMPARISON: 05/19/2018. FINDINGS: Lung volumes are normal. There are airspace opacities in the left midlung and peripheral left lung base. No pleural effusion or pneumothorax is seen. The cardiac silhouette is normal in size. IMPRESSION: 1. Airspace opacities in the left lung consistent with pneumonia. Dictated by: Dictated on workstation # [id number]
[2020-01-13 10:34] LABS: GLUCOSE 90 MG/DL (70-105); TOTAL PROTEIN 6.4 GM/DL (6.4-8.2)
[2020-01-13 10:35] LABS: CARBON DIOXIDE 21 MMOL/L (21-32)
--- NOTE | 2020-01-13 10:35 | NUR ---
Called pt's regarding plan of care for pt.
[2020-01-13 10:36] LABS: BILIRUBIN,TOTAL 0.4 MG/DL (0.1-1.0)
[2020-01-13 10:38] LABS: ALKALINE PHOSPHATASE 59 U/L (40-136); CREATININE SERUM 0.74 MG/DL (0.60-1.30); GFR ESTIMATED > 60
[2020-01-13 10:39] LABS: BUN/CREATININE RATIO 11
[2020-01-13 10:40] LABS: BILIRUBIN,URINE NEGATIVE (NEGATIVE); CLARITY,URINE CLEAR; COLOR,URINE YELLOW; GLUCOSE, URINE (UA) NEGATIVE (NEGATIVE); KETONES,URINE NEGATIVE (NEGATIVE); LEUKOCYTE ESTERASE ,URINE NEGATIVE (NEGATIVE); NITRITE,URINE NEGATIVE (NEGATIVE); PROTEIN,URINE NEGATIVE (NEGATIVE)
[2020-01-13 10:41] LABS: ALANINE AMINOTRANSFERASE 41 U/L (0-55)
--- NOTE | 2020-01-13 10:41 | NUR ---
Pt up to restroom; O2 dropped to 89%. Pt's O2 returned to mid 90s after being back in bed for a moment. Addendum: 01/13/20 at 1058 by [id number] Odalys notified of pt's O2 status.
[2020-01-13 10:58] LABS: BACTERIA,URINE MODERATE /HPF
[2020-01-13] MEDS ORDERED: AZITHROMYCIN INJECTION 500 MG in NS (IVPB) 250 ML IV ONE (11:00)
[2020-01-13] MEDS ORDERED: cefTRIAXone FOR IV USE 1,000 MG in WATER (STERILE) FOR INJECTION 10 ML IV ONE (11:00)
[2020-01-13] MEDS ORDERED: LACTATED RINGERS 1,000 ML IV STA (11:12)
--- NOTE | 2020-01-13 12:52 | NUR ---
Called and spoke to regarding admission.
[2020-01-13] MEDS ORDERED: ACETAMINOPHEN 500 MG TAB (TYLENOL) PO ONE (13:15)
[2020-01-13] MEDS ORDERED: ONDANSETRON 4 MG/2 ML (SDV) Z0FRAN IV PRN (13:15)
[2020-01-13] MEDS ORDERED: ACETAMINOPHEN 325 MG TABLET PO PRN (13:15)
[2020-01-13] MEDS ORDERED: IBUPROFEN 800 MG (MOTRIN) TAB PO PRN (13:15)
[2020-01-13] MEDS ORDERED: LOPERAMIDE 2 MG (IMODIUM) TABLET PO PRN (13:15)
--- NOTE | 2020-01-13 13:20 | NUR ---
Karan Galvez admitted to room 432-1, with an admitting diagnosis of hypoxia, on 01/13/20 from [place] via , accompanied by .KARAN GALVEZ introduced to surroundings, call light, bed controls, phone, TV, temperature control, lights, meal times, smoking policy, visitor policy, side rail policy, bathrooms and showers. Patient Rights given to patient in the handbook.KARAN GALVEZ verbalizes understanding that [facility] is not responsible for the loss or damage to any personal effects or valuables that are kept in the patients posession during their hospitalization. KARAN GALVEZ verbalizes understanding of Interdisciplinary Patient Education. Patient and/or family were informed about the Rapid Response Team and its purpose.
[2020-01-13] MEDS ORDERED: CATHETER FLUSH 10 ML SYR IV PRN (13:30)
[2020-01-13 13:35] VITALS: BP 120/77
[2020-01-13] MEDS ORDERED: RIZA10TA94 PO (14:20)
[2020-01-13] MEDS ORDERED: PROP20TA5 PO (14:20)
[2020-01-13] MEDS ORDERED: PHEN-827 PO (14:20)
[2020-01-13] MEDS ORDERED: LORA-726 PO (14:20)
[2020-01-13] MEDS ORDERED: L.AC1CAP6 PO (14:21)
[2020-01-13] MEDS ORDERED: ASCO-262 PO (14:21)
--- NOTE | 2020-01-13 14:21 | NUR ---
SPOKE WITH THE PT (I CALLED THE PT ROOM) AND WENT THRU THE EXT MED HISTORY TO COMPLETE THE MED REC PT WAS ABLE TO NAME ALL HER MEDICATIONS. ACCORDING TO THE PT SHE TAKES FLEXERIL 10MG - 2 TO 4 TABS HS PT SAYS SHE TAKES DUEXIS (IBUPROFEN 800MG + FAMOTIDINE) BUT I CANT FIND WHAT PHARMACY HAS FILLED THEM OTC MEDS: PROBIOTIC VITAMIN C
[2020-01-13] MEDS: LACTATED RINGERS 1,000 ML IV SCH (15:07)
[2020-01-13] MEDS ORDERED: FLU QUADRIvalent (3YOA+) 60 mcg/0.5 ml 2020-21 (AFLURIA) IM ONE (15:15)
[2020-01-13 16:09] VITALS: BP 120/77
[2020-01-13] MEDS ORDERED: RT-ALBUTEROL INHALER HFA (VENTOLIN HFA) 18 GM IH PRN (16:15)
[2020-01-13 16:39] VITALS: BP 139/71
[2020-01-13] MEDS ORDERED: ENOXAPARIN 40 MG/0.4 ML (LOVENOX) SYR SQ SCH (19:00)
[2020-01-13 20:32] VITALS: BP 137/69
--- NOTE | 2020-01-13 20:51 | History & Physical-Hospitalist ---
History of Present Illness HPI/Chief Complaint Briana Daly is a 49 year old female with PMH hypothyroidism, migraines, fibromyalgia, who presented with shortness of breath. She tested positive for COVID-19 a few days ago. She reports fevers. She reports cough. She has been nauseous. She has been weak. She has lost her sense of taste and smell. She reports anorexia. She reports chest tightness. She denies abdominal pain. She reports diarrhea. She has not been talking any medicines for COVID. She has not had any sick contacts that she is aware of. Source: patient Exam Limitations: no limitations Date Seen 01/13/20 Time Seen by a Provider: 15:30 Attending Physician Jorge Luz MD PCP Lance Oliveira MD Referring Physician Date of Admission Jan 13, 2020 at 12:05 Home Medications & Allergies Home Medications Reviewed patient Home Medication Reconciliation performed by pharmacy medication reconciliations phlebotomy services technician and/or nursing. Patients Allergies have been reviewed. Allergies Allergies Coded Allergies meperidine (Unverified Allergy, Severe, STOPS BREATHING, 11/30/19) Penicillins (Unverified Allergy, Mild, RASH/ITCHING, 11/30/19) Past Xkeugyc-Uqnhil-Kjgwqg Hx Past Med/Social Hx: Reviewed Nursing Past Med/Soc Hx Patient Social History Alcohol Use: Denies Use Recreational Drug Use: No 2nd Hand Smoke Exposure: No Recent Foreign Travel: No Contact w/other who traveled: No Recent Hopitalizations: No Recent Infectious Disease Expo: No Seasonal Allergies Seasonal Allergies: No Past Medical History Surgeries: Appendectomy, Section, Gallbladder, Hysterectomy, Oophorectomy Cardiac: High Cholesterol Neurological: Headaches /Migraines Sexually Transmitted Disease: No HIV/AIDS: No Genitourinary: UTI-Chronic Gastrointestinal: Gastroesophageal Reflux Musculoskeletal: Arthritis, Fibromyalgia Endocrine: Hypothyroidsim Loss of Vision: Denies Hearing Impairment: Denies History of Blood Disorders: No Adverse Reaction to Blood Deleon: No (N/A) Review of Systems Constitutional: fever, malaise, weakness EENTM: no symptoms reported Respiratory: cough, short of breath Cardiovascular: chest pain Gastrointestinal: diarrhea, nausea Genitourinary: no symptoms reported Musculoskeletal: muscle pain Skin: no symptoms reported Psychiatric/Neurological: No Symptoms Reported Physical Exam Physical Exam Vital Signs Vital Signs - First Documented 11/25/20 11/25/20 09:45 13:05 Temp 37.0 Pulse 93 Resp 20 B/P (MAP) 111/83 (92) Pulse Ox 97 O2 Delivery Nasal Cannula O2 Flow Rate 2.00 Capillary Refill : Less Than 3 Seconds Height, Weight, BMI Height: 5'3.00" Weight: 200lbs. 0.0oz. 90.026757dm; 38.90 BMI Method: General Appearance: No Apparent Distress, Obese HEENT: PERRL/EOMI, Pharynx Normal Neck: Normal Inspection, Supple Respiratory: Lungs Clear, Normal Breath Sounds, No Respiratory Distress Cardiovascular: Regular Rate, Rhythm, No Edema, No Murmur Gastrointestinal: Normal Bowel Sounds, Non Tender, Soft Extremity: Normal Inspection, Non Tender, No Pedal Edema Neurologic/Psychiatric: Alert, Oriented x3, No Motor/Sensory Deficits, Normal Mood/Affect Skin: Normal Color, Warm/Dry Results Results/Procedures Labs Laboratory Tests 01/13/20 10:00 Patient resulted labs reviewed. Imaging: Reviewed Imaging Report Assessment/Plan Admission Diagnosis Acute respiratory failure due to COVID-19 Admission Status: Inpatient Order (span 2 midnights) Reason for Inpatient Admission: Respiratory failure requring supplemental oxygen Assessment and Plan Acute respiratory failure due to COVID-19 Possible bacterial pneumonia Tested COVID+ at outside facility CXR showed diffuse opacities Procalcitonin normal Ddimer normal Started on Decadron Convalescent plasma ordered Started on Rocephin and Azithromycin Supplemental oxygen as needed Fibromyalgia Migraines Hypothyroidism Continue home meds Obesity Clinically significant, no acute management needs DVT Prophylaxis: Lovenox Diagnosis/Problems Diagnosis/Problems (1) Acute respiratory failure due to COVID-19 Status: Acute (2) PNA (pneumonia) Status: Acute (3) Fibromyalgia Status: Chronic (4) Migraines Status: Chronic (5) Obesity Status: Chronic (6) Hypothyroidism Status: Chronic Clinical Quality Measures DVT/VTE Risk/Contraindication: Risk Factor Score Per Nursin RFS Level Per Nursing on Admit: 4+=Very High JORGE LUZ MD Jan 13, 2020 20:51
[2020-01-13] MEDS ORDERED: FLUTICASONE PROPIONATE IH SCH (21:00)
[2020-01-13] MEDS: ESTRADIOL 1 MG TAB (ESTRACE) PO SCH (21:46)
[2020-01-13] MEDS: PROPRANOLOL 20 MG (INDERAL) TABLET PO SCH (21:46)
[2020-01-13] MEDS: ENOXAPARIN 40 MG/0.4 ML (LOVENOX) SYR SQ SCH (21:47)
[2020-01-13] MEDS: CYCLOBENZAPRINE 10 MG (FLEXERIL) TAB PO PRN (21:50)
[2020-01-13] MEDS: FLUTICASONE 220 MCG INHALER (FLOVENT) 12 GM INH SCH (22:00)
[2020-01-13] MEDS: RT-ALBUTEROL INHALER HFA (VENTOLIN HFA) 18 GM IH SCH (22:01)
[2020-01-14] VITALS (7 sets, daily range): BP systolic 102–126; BP diastolic 64–77
[2020-01-14] MEDS ORDERED: NS IV 500 ML 500 ML ONE (01:40)
[2020-01-14] MEDS: LACTATED RINGERS 1,000 ML IV SCH ×3 (02:05→09:30)
[2020-01-14] MEDS ORDERED: NS IV 500 ML 500 ML IV ONE (02:15)
[2020-01-14] MEDS: RT-ALBUTEROL INHALER HFA (VENTOLIN HFA) 18 GM IH SCH ×4 (02:25→19:19)
[2020-01-14 05:44] LABS: BASOPHILS % (AUTO) 0 % (0-10); EOSINOPHILS % (AUTO) 0 % (0-10); HEMATOCRIT 33 % (35-52); HEMOGLOBIN 11.6 g/dL (11.5-16.0); LYMPHOCYTES # (AUTO) 1.2 10^3/uL (1.0-4.0); LYMPHOCYTES % (AUTO) 39 % (12-44); MEAN CORPUSCULAR HEMOGLOBIN 32 pg (25-34); MEAN CORPUSCULAR HGB CONC 35 g/dL (32-36); MEAN CORPUSCULAR VOLUME 92 fL (80-99); MEAN PLATELET VOLUME 10.1 fL (9.0-12.2); MONOCYTES # (AUTO) 0.3 10^3/uL (0.0-1.0); MONOCYTES % (AUTO) 11 % (0-12); NEUTROPHILS # (AUTO) 1.5 10^3/uL (1.8-7.8); NEUTROPHILS % (AUTO) 50 % (42-75); PLATELET COUNT 164 10^3/uL (130-400); WHITE BLOOD COUNT 3.1 10^3/uL (4.3-11.0)
[2020-01-14 06:25] LABS: ALBUMIN 3.3 GM/DL (3.2-4.5); CHLORIDE 104 MMOL/L (98-107); POTASSIUM 3.3 MMOL/L (3.6-5.0); SODIUM 139 MMOL/L (135-145)
[2020-01-14 06:26] LABS: CALCIUM 7.6 MG/DL (8.5-10.1)
[2020-01-14 06:27] LABS: GLUCOSE 120 MG/DL (70-105)
[2020-01-14 06:29] LABS: BILIRUBIN,TOTAL 0.4 MG/DL (0.1-1.0); CARBON DIOXIDE 22 MMOL/L (21-32)
[2020-01-14 06:31] LABS: ALKALINE PHOSPHATASE 52 U/L (40-136); CREATININE SERUM 0.69 MG/DL (0.60-1.30); GFR ESTIMATED > 60
[2020-01-14 06:32] LABS: BUN/CREATININE RATIO 10
[2020-01-14 06:34] LABS: ALANINE AMINOTRANSFERASE 32 U/L (0-55)
[2020-01-14] MEDS: LEVOTHYROXINE 50 MCG (LEVOTHROID) TAB PO SCH (07:03)
[2020-01-14] MEDS: FLUTICASONE 220 MCG INHALER (FLOVENT) 12 GM INH SCH (08:20)
[2020-01-14] MEDS ORDERED: KCL 20 MEQ TAB (K-DUR) PO NR (09:00)
[2020-01-14] MEDS ORDERED: cefTRIAXone 1,000 MG/SWFI 10 ML IV PUSH IV SCH ×2 (09:00)
[2020-01-14] MEDS: PANTOPRAZOLE 40 MG (PROTONIX) TAB PO SCH (09:29)
[2020-01-14] MEDS: CEFDINIR 300 MG (OMNICEF) CAP PO SCH ×2 (09:53→20:25)
[2020-01-14] MEDS ORDERED: guaiFENesin (MUCINEX) 600 MG TAB PO NR (13:30)
--- NOTE | 2020-01-14 13:30 | Progress Note - Hospitalist ---
Subjective HPI/CC On Admission Date Seen by Provider: Jan 14, 2020 Time Seen by Provider: 11:10 Briana Daly is a 49 year old female with PMH hypothyroidism, migraines, fibromyalgia, who presented with shortness of breath. She tested positive for COVID-19 a few days ago. She reports fevers. She reports cough. She has been nauseous. She has been weak. She has lost her sense of taste and smell. She reports anorexia. She reports chest tightness. She denies abdominal pain. She reports diarrhea. She has not been talking any medicines for COVID. She has not had any sick contacts that she is aware of. Subjective/Events-last exam She reports feeling better today. She is asking about going home tomorrow. She is not feeling short of breath. She has been up and moving around and did not get short of breath with activity. She still has a cough. She denies any fevers. She has no other complaints or concerns. Focused Exam Lactate Level 01/13/20 10:00: Lactic Acid Level 2.44*H 01/13/20 12:20: Lactic Acid Level 1.14 01/13/20 13:31: Lactic Acid Level 1.08 Time of Focused Exam: 10:57 Objective Exam Vital Signs Vital Signs Date Time Temp Pulse Resp B/P (MAP) Pulse Ox O2 Delivery O2 Flow Rate FiO2 01/14/20 12:00 36.7 70 20 120/65 (83) 94 Nasal Cannula 2.00 Capillary Refill : Less Than 3 Seconds General Appearance: No Apparent Distress, Obese Respiratory: Lungs Clear, Normal Breath Sounds, No Respiratory Distress Cardiovascular: Regular Rate, Rhythm, No Edema, No Murmur Gastrointestinal: Normal Bowel Sounds, Non Tender, Soft Extremity: Normal Inspection, Non Tender, No Pedal Edema Neurologic/Psychiatric: Alert, Oriented x3, No Motor/Sensory Deficits, Other (flat affect) Skin: Normal Color, Warm/Dry Results/Procedures Lab Laboratory Tests 01/14/20 05:15 Patient resulted labs reviewed. Imaging: Reviewed Imaging Report Assessment/Plan Assessment and Plan Assess & Plan/Chief Complaint Acute respiratory failure due to COVID-19 Possible bacterial pneumonia continue Decadron s/p 1 unit convalescent plasma Procalcitonin remains normal Transitioned to Omnicef Supplemental oxygen as needed Fibromyalgia Migraines Hypothyroidism Continue home meds Obesity Clinically significant, no acute management needs DVT Prophylaxis: Lovenox Diagnosis/Problems Diagnosis/Problems (1) Acute respiratory failure due to COVID-19 Status: Acute (2) PNA (pneumonia) Status: Acute (3) Fibromyalgia Status: Chronic (4) Migraines Status: Chronic (5) Obesity Status: Chronic (6) Hypothyroidism Status: Chronic Clinical Quality Measures DVT/VTE Risk/Contraindication: Risk Factor Score Per Nursin RFS Level Per Nursing on Admit: 4+=Very High JORGE LUZ MD Jan 14, 2020 13:30
[2020-01-14] MEDS ORDERED: guaiFENesin (MUCINEX) 600 MG TAB PO ONE (13:44)
[2020-01-14] MEDS ORDERED: LACTATED RINGERS 1,000 ML IV ONE (18:16)
[2020-01-14] MEDS: CYCLOBENZAPRINE 10 MG (FLEXERIL) TAB PO PRN (20:25)
[2020-01-14] MEDS: PROPRANOLOL 20 MG (INDERAL) TABLET PO SCH (20:25)
[2020-01-14] MEDS: ENOXAPARIN 40 MG/0.4 ML (LOVENOX) SYR SQ SCH (20:25)
[2020-01-14] MEDS: guaiFENesin (MUCINEX) 600 MG TAB PO SCH (20:25)
[2020-01-14] MEDS: ESTRADIOL 1 MG TAB (ESTRACE) PO SCH (20:25)
[2020-01-14] MEDS ORDERED: AZITHROMYCIN 500 MG/NS 250 ML IVPB IV SCH ×2 (23:00)
[2020-01-15 00:06] VITALS: BP 101/62
[2020-01-15] MEDS: RT-ALBUTEROL INHALER HFA (VENTOLIN HFA) 18 GM IH SCH ×2 (02:15→07:24)
[2020-01-15 05:54] LABS: BASOPHILS % (AUTO) 0 % (0-10); EOSINOPHILS % (AUTO) 0 % (0-10); HEMATOCRIT 35 % (35-52); HEMOGLOBIN 11.6 g/dL (11.5-16.0); LYMPHOCYTES # (AUTO) 2.3 10^3/uL (1.0-4.0); LYMPHOCYTES % (AUTO) 33 % (12-44); MEAN CORPUSCULAR HEMOGLOBIN 31 pg (25-34); MEAN CORPUSCULAR HGB CONC 33 g/dL (32-36); MEAN CORPUSCULAR VOLUME 94 fL (80-99); MEAN PLATELET VOLUME 10.3 fL (9.0-12.2); MONOCYTES # (AUTO) 0.6 10^3/uL (0.0-1.0); MONOCYTES % (AUTO) 9 % (0-12); NEUTROPHILS # (AUTO) 3.9 10^3/uL (1.8-7.8); NEUTROPHILS % (AUTO) 58 % (42-75); PLATELET COUNT 182 10^3/uL (130-400); WHITE BLOOD COUNT 6.8 10^3/uL (4.3-11.0)
[2020-01-15] MEDS ORDERED: MAGNESIUM 1 GM/100 ML IVPB 100 ML IV SCH (06:00)
[2020-01-15] MEDS ORDERED: KCL 20 MEQ TAB (K-DUR) PO SCH (06:00)
[2020-01-15] MEDS ORDERED: POTASSIUM CL 10MEQ/50ML IVPB 50 ML IV SCH (06:00)
[2020-01-15 06:10] LABS: ALBUMIN 3.2 GM/DL (3.2-4.5)
[2020-01-15 06:11] LABS: CHLORIDE 106 MMOL/L (98-107); POTASSIUM 3.8 MMOL/L (3.6-5.0); SODIUM 139 MMOL/L (135-145)
[2020-01-15 06:12] LABS: CALCIUM 7.6 MG/DL (8.5-10.1)
[2020-01-15 06:13] LABS: GLUCOSE 100 MG/DL (70-105); TOTAL PROTEIN 6.1 GM/DL (6.4-8.2)
[2020-01-15 06:14] LABS: CARBON DIOXIDE 22 MMOL/L (21-32)
[2020-01-15 06:15] LABS: BILIRUBIN,TOTAL 0.3 MG/DL (0.1-1.0)
[2020-01-15 06:16] LABS: ALKALINE PHOSPHATASE 49 U/L (40-136)
[2020-01-15 06:17] LABS: CREATININE SERUM 0.65 MG/DL (0.60-1.30); GFR ESTIMATED > 60
[2020-01-15 06:18] LABS: BUN/CREATININE RATIO 12
[2020-01-15 06:20] LABS: ALANINE AMINOTRANSFERASE 28 U/L (0-55)
[2020-01-15] MEDS: LEVOTHYROXINE 50 MCG (LEVOTHROID) TAB PO SCH (06:37)
[2020-01-15] MEDS: FLUTICASONE 220 MCG INHALER (FLOVENT) 12 GM INH SCH (07:25)
[2020-01-15 08:00] VITALS: BP 116/69
[2020-01-15] MEDS: CEFDINIR 300 MG (OMNICEF) CAP PO SCH (08:18)
[2020-01-15] MEDS: guaiFENesin (MUCINEX) 600 MG TAB PO SCH (08:18)
[2020-01-15] MEDS: PANTOPRAZOLE 40 MG (PROTONIX) TAB PO SCH (08:18)
--- NOTE | 2020-01-15 12:10 | NUR ---
PATIENT ON 2L OF OXYGEN SAT WAS 93% PATIENT PLACED ON ROOM AIR FOR 60MIN. SAT WAS THEN 91% PATIENT WALKED AND SAT WENT TO 95% PATIENT DID NOT QUALIFY FOR HOME OXYGEN Addendum: 01/15/20 at 1214 by RIA JAQUEZ RT Amended: Links added.
[2020-01-15] MEDS ORDERED: CEFD300C3 PO (12:20)
[2020-01-15 13:30] VITALS: BP 116/69
--- NOTE | 2020-01-15 19:03 | Discharge Summary ---
Discharge Summary Hospital Course Was the Problem List Reviewed?: Yes Problems/Dx: (1) Acute respiratory failure due to COVID-19 Status: Acute (2) PNA (pneumonia) Status: Acute (3) Fibromyalgia Status: Chronic (4) Migraines Status: Chronic (5) Obesity Status: Chronic (6) Hypothyroidism Status: Chronic Hospital Course Date of Admission: Jan 13, 2020 at 12:05 Admission Diagnosis : Acute respiratory failure due to COVID-19 Family Physician/Provider: Lance Buchanan MD Date of Discharge: 01/15/20 Discharge Diagnosis: Acute respiratory failure due to COVID-19 Hospital Course: Briana Daly is a 49 year old female who was admitted with acute respiratory failure due to COVID-19. She was treated with Decadron and convalescent plasma. She improved rapidly. She was initially requiring supplemental oxygen, but at the time of discharge, an RT study showed no oxygen need. There was also concern for a superimposed bacterial pneumonia and she was given a course of Omnicef. She should follow up with Dr. Buchanan in a week or two. She was discharged home in stable condition. Labs and Pending Lab Test: Laboratory Tests 01/15/20 05:30: White Blood Count 6.8, Red Blood Count 3.69L, Hemoglobin 11.6, Hematocrit 35, Mean Corpuscular Volume 94, Mean Corpuscular Hemoglobin 31, Mean Corpuscular Hemoglobin Concent 33, Red Cell Distribution Width 12.3, Platelet Count 182, Mean Platelet Volume 10.3, Immature Granulocyte % (Auto) 0, Neutrophils (%) (Auto) 58, Lymphocytes (%) (Auto) 33, Monocytes (%) (Auto) 9, Eosinophils (%) (Auto) 0, Basophils (%) (Auto) 0, Neutrophils # (Auto) 3.9, Lymphocytes # (Auto) 2.3, Monocytes # (Auto) 0.6, Eosinophils # (Auto) 0.0, Basophils # (Auto) 0.0, Immature Granulocyte # (Auto) 0.0, Sodium Level 139, Potassium Level 3.8, Chloride Level 106, Carbon Dioxide Level 22, Anion Gap 11, Blood Urea Nitrogen 8, Creatinine 0.65, Estimat Glomerular Filtration Rate > 60, BUN/Creatinine Ratio 12, Glucose Level 100, Calcium Level 7.6L, Corrected Calcium 8.2L, Magnesium Level 2.0, Total Bilirubin 0.3, Aspartate Amino Transf (AST/SGOT) 26, Alanine Aminotransferase (ALT/SGPT) 28, Alkaline Phosphatase 49, Total Protein 6.1L, Albumin 3.2 Microbiology 01/13/20 Gram Stain - Final, Resulted 01/13/20 Sputum Culture - Preliminary, Resulted Usual upper respiratory td Fungus 01/13/20 Urine Culture - Final, Complete >=3 Gram Positive Isolates Home Meds Active Cefdinir 300 Mg Capsule 300 Mg PO BID 4 Days Reported Probiotic (L.acidoph & Paracasei,B.lactis) 1 Each Capsule 1 Each PO DAILY Vitamin C (Ascorbate Calcium) 500 Mg Tablet 500 Mg PO DAILY Rizatriptan (Rizatriptan Benzoate) 10 Mg Tab.rapdis 10 Mg PO DAILY PRN Loratadine-D 12 Hour Tablet (Loratadine/Pseudoephedrine) 1 Each Tab.er.12h 1 Ea PO BID PRN Phenazopyridine HCl 200 Mg Tablet 200 Mg PO Q8H PRN Propranolol HCl 20 Mg Tablet 40 Mg PO HS TAKES 2 (20MG) TABS Estradiol Tablet (Estradiol) 1 Mg Tablet 1 Mg PO HS Cyclobenzaprine HCl 10 Mg Tablet 20-40 Mg PO HS PRN TAKES 2 TO 4 (10MG) TABS Flovent Hfa 220 mcg (Fluticasone Propionate) 1 Ea Aero 2 Ea IH BID Levothyroxine Sodium 50 Mcg Tablet 50 Mcg PO DAILY Assessment/Pt Instructions Take medications as prescribed. Follow up with Dr. Buchanan. Discharge Planning: <30 minutes discharge planning Discharge Instructions Discharge Diet: No Restrictions Activity as Tolerated: Yes Discharge Physical Examination Vital Signs Vital Signs Date Time Temp Pulse Resp B/P (MAP) Pulse Ox O2 Delivery O2 Flow Rate FiO2 01/15/20 13:30 35.8 83 18 116/69 93 Room Air 0.00 General Appearance: No Apparent Distress, Obese HEENT: PERRL/EOMI, Pharynx Normal Respiratory: Lungs Clear, Normal Breath Sounds, No Respiratory Distress Cardiovascular: Regular Rate, Rhythm, No Edema, No Murmur Gastrointestinal: Normal Bowel Sounds, Non Tender, Soft Extremity: Normal Inspection, Non Tender, No Pedal Edema Skin: Normal Color, Warm/Dry Neurologic/Psychiatric: Alert, Oriented x3, No Motor/Sensory Deficits, Normal Mood/Affect Allergies: Coded Allergies: meperidine (Unverified Allergy, Severe, STOPS BREATHING, 11/30/19) Penicillins (Unverified Allergy, Mild, RASH/ITCHING, 11/30/19) Copy Copies To 1: LANCE BUCHANAN MD Discharge Summary Date of Admission Jan 13, 2020 at 12:05 Date of Discharge Jan 15, 2020 at 13:10 Discharge Date: Jan 15, 2020 Discharge Time: 13:10 Admission Diagnosis Acute respiratory failure due to COVID-19 Discharge Diagnosis Acute respiratory failure due to COVID-19 (1) Acute respiratory failure due to COVID-19 Status: Acute (2) PNA (pneumonia) Status: Acute (3) Fibromyalgia Status: Chronic (4) Migraines Status: Chronic (5) Obesity Status: Chronic (6) Hypothyroidism Status: Chronic Clinical Quality Measures DVT/VTE Risk/Contraindication: Risk Factor Score Per Nursin RFS Level Per Nursing on Admit: 4+=Very High JORGE LUZ MD Jan 15, 2020 19:03
--- NOTE | 2020-01-18 02:50 | Physician Query Clarification ---
PQ-Uncertain Diagnosis Admission/Discharge Admission Date: Jan 13, 2020 at 12:05 Discharge Date: Jan 15, 2020 at 13:10 JORGE Mckeon MD The medical record reflects the following clinical scenario: History/Risk Factors: 49 y/o female patient presents with fever, shortness of breath and cough found to have acute respiratory failure due to COVID 19. ED provider report, 01/12: COVID 19, pneumonia, acute respiratory failure with hypoxia, sepsis Hand P, 01/12: Acute respiratory failure due to COVID-19, possible bacterial pneumonia. Discharge summary, 01/14: cute respiratory failure due to COVID-19, possible bacterial pneumonia. Clinical Findings:Pulse- 93, Lactic acid level-2.4 Treatment: Convalescent plasma, omnicef Question: Is Sepsis a clinically valid diagnosis? Sepsis was documented in the ED provider note, 01/12 with no further documentation in the medical record. Please document a response in Progress Note or Discharge Summary. 1. Yes, clinically valid, condition resolved. 2. No, condition ruled out. 3. Other, with explanation of clinical findings. 4. Undetermined, no explanation for clinical findings. PHYSICIAN RESPONSE Diagnosis clinically valid: Other, explanation/clinical finding Explanation of clincal finding Viral sepsis due to COVID-19 Please remember a lack of response to the above will prompt a phone page by [facility] staff. In responding to this query, please exercise your independent professional judgment. The purpose of this communication is to more accurately reflect the complexity of your patients condition. The fact that a question is asked does not imply that any particular answer is desired or expected. Thank you for your timely response to this clarification. Requestors name: [ ] Phone # [ ] THIS PHYSICIAN QUERY FORM IS A PERMANENT PART OF THE MEDICAL RECORD YAZAN CRANDALLErendira Jan 18, 2020 02:50 JORGE LUZ MD Jan 25, 2020 16:55
== END 2020-01-15 13:10 | disposition home or self-care (01) | DRG 871 ==
LOC: EDUNIT# 09:40 → ER 09:41 → 4TH 12:05
PROVIDERS: ADMIT Internal Medicine; ATTEND Internal Medicine
PROC: XW13325 Transfusion of Convalescent Plasma (Nonautologous) into Peripheral Vein, Percutaneous Approach, New Technology Group 5 (ICD-10-PCS; principal; 2020-01-14)
DX: A41.89 Other specified sepsis (principal); U07.1 COVID-19; J15.9 Unspecified bacterial pneumonia; J96.01 Acute respiratory failure with hypoxia; E03.9 Hypothyroidism, unspecified; G43.909 Migraine, unspecified, not intractable, without status migrainosus; M79.7 Fibromyalgia; K21.9 Gastro-esophageal reflux disease without esophagitis; M19.90 Unspecified osteoarthritis, unspecified site; E66.9 Obesity, unspecified; Z88.0 Allergy status to penicillin; Z88.5 Allergy status to narcotic agent; Z68.38 Body mass index [BMI] 38.0-38.9, adult
CPT/HCPCS: 36415; 71045; 80053; 81000; 82805; 83605; 83735; 84145; 85025; 85379; 86141; 86850; 86900; 86901; 87070; 87088; 87205; 90686; 94640; 94760; 94761; 96361; 96365; 96375